=== PATIENT | male | born 1960 | race Caucasian/White ===

== ENCOUNTER 2023-12-19 07:56 | Inpatient (IN) | payer OTHER, SELFPAY ==
[2023-12-19] VITALS (22 sets, daily range): BP systolic 132–172; BP diastolic 59–83; PULSE 50–69; RESP 9–20; TEMP 35.9–36.9; O2SAT 94–100; BMI 21.4
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
[2023-12-19] MEDS: Normal Saline Flush 10 ML SYR IVP ×2 (08:15→19:41)
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
[2023-12-19] MEDS: fentaNYL 100 MCG/2 ML VIAL IVP (08:20)
[2023-12-19 08:24] LABS: Abs Immature Grans 0.06 10^3/uL (0.0-0.06); Absolute Basophil Count 0.04 10^3/uL (0.0-0.2); Absolute Eosinophil Count 0.12 10^3/uL (0.0-0.7); Absolute Monocyte Count 0.57 10^3/uL (0.1-0.8); Absolute Neutrophil Count 8.39 10^3/uL (1.2-6.7); Basophils % 0.4; Eosinophils % 1.1; HCT 38.9 % (40.0-50.0); HGB 13.9 g/dL (13.5-17.5); Immature Grans % 0.5; Lymphocytes % 17.9; MCH 34.2 pg (27.0-33.0); MCHC 35.7 % (32.0-36.0); MCV 96 fL (80-95); MPV 9.2 fL (8.0-11.0); Monocytes % 5.1; Platelet Count 196 10^3/uL (130-400); RBC 4.07 10^6/uL (4.36-5.78); RDW 11.5 % (11.8-14.1); RDW-SD 40.3 fL; WBC 11.18 10^3/uL (4.4-10.8)
[2023-12-19 08:39] LABS: ALT 32 U/L (16-63); AST 25 U/L (15-37); Albumin 4.5 g/dL (3.4-5.0); Alkaline Phosphatase 126 U/L (46-116); Anion Gap 14.2 mmol/L (3-11); BUN 9 mg/dL (7-18); Bilirubin, Total 0.6 mg/dL (0.2-1.0); CO2 24.8 mmol/L (21.0-32.0); CREATININE 0.8 mg/dL (0.70-1.30); Chloride 99 mmol/L (98-107); Estimated GFR 98.21 (mL/min/1.73m2); Glucose 139 mg/dL (74-106); Magnesium 1.9 mg/dL (1.8-2.4); Potassium 3.7 mmol/L (3.5-5.1); Sodium 138 mmol/L (136-145); Total Protein 8.2 g/dL (6.4-8.2)
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
[2023-12-19] MEDS: Lactated Ringers 1,000 ML 1000 ML IV (09:06)
[2023-12-19] MEDS: Normal Saline - Diluent 50 ML VIAL IJ (09:06)
[2023-12-19] MEDS: Omnipaque 350 MG/ML 100 ML BTL IJ (09:07)
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
--- NOTE | 2023-12-19 10:15 | DI.RAD_ITS ---
Exam(s) XR HIP RT IN OR EXAM: XR HIP RT IN OR CLINICAL HISTORY: RIGHT FEMUR FRACTURE. TECHNIQUE: 2D digital imaging was performed. COMPARISON: No exams were available for comparison FINDINGS: Fluoroscopy was provided intraoperatively during open reduction internal fixation of right upper femu r displaced comminuted fracture. See procedure report for details. Total fluoroscopy time 3 minutes 59 seconds IMPRESSION: Radiation exposure index/cumulative dose: tanya Ro= 24.661 mGy DATA REPOSITORY: RADIATION DOSE DELIVERED:
--- NOTE | 2023-12-19 10:38 | ANES.PREOP_ITS ---
General Info Date of Service Date Performed: 12/19/23 Height: 5 ft 9 in Weight: 65.771 kg Body Mass Index (BMI): 21.4 Surgical Procedure: Operation Date: 12/19/23 10:45 Proposed Procedure Side Surgeon p Hip TFNA Right Peter De Jesus MD Meds Allergies and Home Medications Allergies Allergy/AdvReac Type Severity Reaction Status Date / Time No Known Allergies Allergy Unverified 12/19/23 08:05 Home Medication Medication Instructions Recorded multivitamin (Daily Multi-Vitamin 1 tab PO DAILY 12/19/23 tablet) Current Visit Medications: Current Medications Generic Name Dose Route Start Last Admin Trade Name Freq PRN Reason Stop Dose Admin Fentanyl 100 mcg 12/19/23 08:04 12/19/23 08:20 Fentanyl 100 Mcg/2 Ml Vial IVP 100 mcg PRN PRN Administration Ringer's Solution 1,000 mls @ 80 mls/hr 12/19/23 10:01 IV INFUSION GYPSY IV Miscellaneous Supplies 1 each 12/19/23 08:15 Iv Access-Emergency Dept IV DIRECTED GYPSY Iohexol 100 ml 12/19/23 09:15 12/19/23 09:07 Omnipaque 350 Mg/Ml 100 Ml Btl IJ 01/18/24 23:59 100 ml DIRECTED GYPSY Administration Sodium Chloride 0 ml 12/19/23 08:04 Normal Saline Flush 10 Ml Syr IVP PRN PRN Sodium Chloride 0 ml 12/19/23 08:30 12/19/23 08:15 Normal Saline Flush 10 Ml Syr IVP 10 ml BID GYPSY Administration Sodium Chloride 0 ml 12/19/23 08:04 Normal Saline 10 Ml Vial IJ DIRECTED PRN Sodium Chloride 50 ml 12/19/23 09:15 12/19/23 09:06 Normal Saline - Diluent 50 Ml Vial IJ 50 ml .FOR DI USE GYPSY Administration PFSH Active Problems Active Problems: Problem Status Onset Code Femur fracture, right S72.91XA Face lacerations S01.81XA Tobacco Smoking/Tobacco Use Status: Never Alcohol Alcohol Intake: current Alcohol intake frequency: 0-2 drinks per day Alcohol type: beer Substance Use Substance use: Occasionally Substance use type: marijuana Vital Signs and Lab Results Vital Signs Most Recent Vital Signs in EMR: Most Recent Vital Signs Temp Pulse Resp BP Pulse Ox 35.9 C L 56 L 14 172/83 H 94 12/19/23 07:56 12/19/23 10:12 12/19/23 10:12 12/19/23 10:12 12/19/23 10:12 Lab Results 12/19/23 08:15 12/19/23 08:15 Blood Type / Crossmatch: 2 Patient ABO/Rh Pending 12/19/23 Antibody Screen Pending 12/19/23 Complete Blood Count: 2 White Blood Count 11.18 10^3/uL (4.4-10.8) H 12/19/23 08:15 Red Blood Count 4.07 10^6/uL (4.36-5.78) L 12/19/23 08:15 Hemoglobin 13.9 g/dL (13.5-17.5) 12/19/23 08:15 Hematocrit 38.9 % (40.0-50.0) L 12/19/23 08:15 Platelet Count 196 10^3/uL (130-400) 12/19/23 08:15 Complete Metabolic Panel: 2 Sodium 138 mmol/L (136-145) 12/19/23 08:15 Potassium 3.7 mmol/L (3.5-5.1) 12/19/23 08:15 Chloride 99 mmol/L (98-107) 12/19/23 08:15 Carbon Dioxide 24.8 mmol/L (21.0-32.0) 12/19/23 08:15 BUN 9 mg/dL (7-18) 12/19/23 08:15 Creatinine 0.8 mg/dL (0.70-1.30) 12/19/23 08:15 Est GFR (CKD-EPI 2020) 98.21 (mL/min/1.73m2) 12/19/23 08:15 Magnesium 1.9 mg/dL (1.8-2.4) 12/19/23 08:15 Calcium 10.0 mg/dL (8.5-10.1) 12/19/23 08:15 Albumin 4.5 g/dL (3.4-5.0) 12/19/23 08:15 Glucose 139 mg/dL (74-106) H 12/19/23 08:15 Liver Function Panel: 2 Alanine Aminotransferase (ALT/SGPT) 32 U/L (16-63) 02/25/24 08: 15 Aspartate Amino Transf (AST/SGOT) 25 U/L (15-37) 12/19/23 08:15 Coagulation Panel: 2 No Data to Display Cardiac Panel: 2 No Data to Display Arterial Blood Gas: 2 No Data to Display Venous Blood Gas: 2 No Data to Display Pancreas Panel: 2 No Data to Display Thyroid Panel: 2 No Data to Display Infectious Disease: 2 No Data to Display Blood Cultures: 2 No Data to Display Toxicology Panel: 2 No Data to Display Anesthesia Assessment and Plan Anesthesia History Personal History: No History of Anesthesia Complications Family History: No Family History of Anesthesia Complications Exercise Tolerance Exercise Tolerance: Metabolic Equivalents>4 Pertinent Negatives Pertinent Negatives: No Symptoms of GERD Cardiac & Pulmonary Exam Cardiac Exam: Normal S1/S2 Heart Sounds Pulmonary Exam: Clear Bilateral Breath Sounds Implantable Cardiac Device Does patient have a Pacemaker or an ICD?: Yes Device Copy Manager:: [employer] Reason for Placement:: HR control Date of Last Device Interrogation:: Blue-Tooth WiFi Airway Exam Known Difficult Airway: No Mallampati Class: 2 Mouth Opening: Normal (> 3cm) Thyromental Distance: Greater than 3 cm Facial Hair: Full Capps Neck Range of Motion: Full ROM Neck Circumference: Normal Teeth Condition: Normal Dentition ASA Classification ASA Score: ASA 2 Emergency Case?: No NPO Status NPO Status: Full Stomach Anesthesia Plan Resuscitation Status: Full Code Anesthesia Technique: General Anesthesia Airway Planned: Endotracheal Tube Monitors Used: Standard Monitors and SedLine
[2023-12-19] MEDS: Lactated Ringers 1,000 ML 80 ML IV (10:56)
[2023-12-19] MEDS: ceFAZolin 2 GM/50 ML BAG IVPB (11:20)
--- NOTE | 2023-12-19 14:09 | W.PM.OP ---
Date of service: 12/19/23 Time of Service: 11:00 Operative Note Operative Note DATE OF PROCEDURE: 12/19/23 PRE-OP DIAGNOSIS: Right Subtrochanteric Femur Fracture, Bilateral Acetabular Fractures POST-OP DIAGNOSIS: same PROCEDURE: Open Reduction and Intramedullary Fixation of Right Subtrochanteric Femur Fracture Instability testing of bilateral hips SURGEON: Peter De Jesus BALLET SOLOIST: Javon Velasquez Refer to Anesthesia Record ESTIMATED BLOOD LOSS: 250 PATHOLOGY: none sent COMPLICATIONS: None Patient was transported to: PACU Patient's condition: stable Implants: Depuy-Synthes Greater Trochanter RFN 11mm x 380mm Indications: Magdaleno who presented to the Emergency Department after a high energy fall while skiing this morning. X-rays confirmed the diagnosis of a subtrochanteric fracture of the proximal femur. I reviewed the possible treatment options and given the fracture of the femur, I recommened operative fixation. I discussed the technical details of the surgery. I reviewed the risks such as bleeding, infection, pain, stiffness, malunion, nonunion, hardware prominence, hardware faiilure, malrotation, avascular necrosis, blood clot. Despite these risks, Magdaleno agreed to proceed. Findings: There is a grossly displaced fracture about the subtrochanteric region which was challenging to reduce given the amount of flexion and interposed bone. A mini open approach was made laterally for manipulation of the bony fragments and reduction of the fracture prior to placing a recon femoral nail. Procedure Description: Christopher was taken back to the operating room. A general anesthetic was administered. The feet were wrapped with cast padding and Coban and then placed into the boot liners and then into the boots. Care was taken to protect the skin and make sure the heels were fully down and the boots were stable. The patient was then positioned onto the HANA table. Both legs were held in a neutral position. SCDs were applied. The patient was then slid down onto a perineal post. The arm of the operative side was then placed across the chest and secured. The nonoperative leg was scissored. A gentle reduction was then performed with traction and internal rotation and gentle external manipulation. However, it was quite obvious that this was unable to be reduced with closed measures. Prophylactic antibiotics in the form of Cefazolin were administered. 1g of Tranxemic Acid was given intravenously within 30 minutes of incision. The right leg was then prepped with Chloraprep and draped in a standard fashion with shower-curtain type drape with Iodine impregnated skin protection. A timeout to confirm correct identity, side and site, procedure, allergies, anesthesia, and medical concerns was performed. I utilized fluoroscopy to identify the site of the fracture on the skin and then centered an 8 cm incision overlying this with the anticipation of utilizing it for later recon screw placement. This incision was taken down through the skin and eventually the IT band. The vastus fascia was split through a already present defect from the fracture. I then had visualization of the lateral side of the femur. Manipulation of the bony fragments was performed utilizing various retractors. It was very challenging to reduce the flexion of the proximal fragment and manipulate the other 2 pieces. The medial butterfly fragment was completely unstable and had the tendency to rotate and interposed itself and in appropriate position between the proximal and distal fragments. The reduction was also challenging given that there was no side clamp to since the entire medial wall was a separate piece. Nevertheless, with downward force upon the proximal fragment and some elevation of the distal fragment I was able to manipulate the pieces into close proximity and then utilize a collinear clamp with a large disc to clamp the 2 fragments of the femur laterally along with the medial butterfly fragment. This seemed to closely reduce the fracture in both the AP and the lateral. Thus, nail placement was performed. Using fluoroscopy, the starting point was marked over the lateral hip, proximal to the tip of the greater trochanter. A 3cm incision was made through skin and the fascia of the gluteus musculature until the tip of the trochanter was palpable. The starting wire was placed onto the tip and centered in the AP plane. Using a niru, the starting guide wire was buried into the bone. A lateral x-ray confirmed appropriate position and the guidewire was advanced to the level of the lesser trochanter. With a tissue protector, the proximal femur was opened with the opening reamer. A ball-tipped guide wire was inserted into the femur and advanced to the distal extent. AP and lateral fluoroscopic images confirmed appropriate positioning in the distal femur. The length was measured as 380mm. A Synthes greater trochanter RFN [id number] nail was selected and opened on the back table. The femur was reamed sequentially from 9mm to 12.5mm. The nail was assembled to the aiming arm on the back table and confirmed to be aligned with the recon screw trocars. Using manual force the nail was advanced into the femur. A few light mallet blows advanced the nail to its appropriate position. The 2 trocars were then slid down against the lateral side of the femur and a single guidewire was placed to occupational therapy supervisor positioning proximal distal as well as on the lateral view. Manipulation of the arm was performed while maintaining reduction and 2 K wires were placed through the trocars into the femoral head through the femoral neck and a roughly center position on the lateral. These were then measured and drilled. A 105 mm screw was placed distally and a 90 mm screw was placed superiorly, both with excellent purchase and bite. AP and lateral x-rays of both the hip and the knee confirmed appropriate positioning within the femur and with good alignment of the fracture. There was some slight distraction of the fracture laterally and thus I placed a single screw distally through the dynamic hole. The c-arm was moved to the knee where perfect circles were obtained for distal screw placement. The skin and deeper tissues were incised down to the femur. The drill was taken through the femur, nail, and opposite cortex. This was measured. The screw was inserted with good purchase and bite. Lateral x-ray showed the screw was through the nail and then an AP image confirmed appopriate length. With some stabilizing pressure distally I used the targeting arm to impact the nail thus further reducing the fracture. A second screw was placed into the distal aspect the nail in the static hole using similar perfect red devil technique. Final x-rays were obtained. The wounds were thoroughly irrigated. A cocktail consisting of 123mg of Ropivacaine, 0.25mg of Epinephrine, 0.04mg of Clonidine, and 15mg of Ketorolac, diluted to 100cc was injected throughout the tissues. The deep fascia of the proximal two wounds was reapproximated with a #1 Vicryl. The deep tisses were closed with 0 and 2-0 Vicryl and the skin was closed with a running subcuticular Monocryl suture, reinforced with skin glue. Mepilex silver dressings were placed onto the wounds. The drapes were removed and his legs were brought back onto the regular portion of the table out of the boots. I then performed manipulation of each hip. Started with the left side of brought the hip into deep flexion, internal rotation and some adduction. I also applied an axial load in this position which was approximately 100 degrees of flexion, 20 degrees of internal rotation, and 10 degrees of adduction. There was no dislocation. There may been some slight slide appreciated but it was clearly not a dislocation nor true subluxation and the leg was brought back out to his regular position. This was repeated on the right side which had a very similar finding. There was no dislocation of the hip and no true subluxation appreciated. At the end of the case, all counts were correct. Magdaleno tolerated the procedure well without known complication and was taken to the PACU for recovery. Physical therapy will start post-operatively, weigh-bearing as tolerated with assistive devices. We will maintain some posterior hip precautions about both hips due to the posterior acetabular fractures. Anticoagulation will start within 12-24 hours. 3 doses of post-operative antibitiocis for prophylaxis.
--- NOTE | 2023-12-19 14:37 | W.ANESPOSTOP ---
Postoperative Evaluation Date, Time and Location Date Performed: 12/19/23 Time Performed: 14:37 Patient Location: PACU Vital Signs Most Recent Imported Vital Signs: Most Recent Vital Signs Temp Pulse Resp BP Pulse Ox 36.4 C L 63 15 142/59 H 98 12/19/23 14:30 12/19/23 14:30 12/19/23 14:30 12/19/23 14:30 12/19/23 14:30 Pain Score Most Recent Pain Score: Most Recent Pain Score Pain Level 0 12/19/23 14:30 Assessment Mental Status: Awake (Alert & Oriented to Patient Baseline) Airway and Respiratory Function: Patent airway with normal (patient baseline) respiratory exam Cardiovascular Function: Hemodynamically Stable Hydration Status: Adequately Hydrated Nausea & Vomiting: No Nausea or Vomiting Pain: Pain is tolerable per patient Peripheral Nerve Block: Patient did not receive a nerve block
[2023-12-19] MEDS: ceFAZolin 1 GM/50 ML BAG IVPB (17:31)
[2023-12-19] MEDS: Ketorolac 15 MG/ML VIAL IVP (19:41)
[2023-12-20] MEDS: ceFAZolin 1 GM/50 ML BAG IVPB ×2 (01:54→10:41)
[2023-12-20] MEDS: Ketorolac 15 MG/ML VIAL IVP ×2 (03:54→10:41)
[2023-12-20] MEDS: Normal Saline Flush 10 ML SYR IVP ×2 (03:55→07:39)
[2023-12-20 06:35] LABS: HCT 26.4 % (40.0-50.0); HGB 9.6 g/dL (13.5-17.5); MCH 35.2 pg (27.0-33.0); MCHC 36.4 % (32.0-36.0); MCV 97 fL (80-95); MPV 9.3 fL (8.0-11.0); Platelet Count 160 10^3/uL (130-400); RBC 2.73 10^6/uL (4.36-5.78); RDW 11.8 % (11.8-14.1); RDW-SD 41.2 fL; WBC 9.51 10^3/uL (4.4-10.8)
[2023-12-20 06:52] LABS: Anion Gap 7.9 mmol/L (3-11); BUN 11 mg/dL (7-18); CO2 27.1 mmol/L (21.0-32.0); CREATININE 0.8 mg/dL (0.70-1.30); Calcium 8.5 mg/dL (8.5-10.1); Chloride 104 mmol/L (98-107); Estimated GFR 98.21 (mL/min/1.73m2); Glucose 113 mg/dL (74-106); Potassium 4.2 mmol/L (3.5-5.1); Sodium 139 mmol/L (136-145)
[2023-12-20] MEDS: Enoxaparin 40 MG/0.4 ML SYR SC (07:38)
[2023-12-20] MEDS: Dexamethasone 4 MG TAB PO (07:38)
[2023-12-20 07:39] VITALS: BP 110/73; PULSE 69; RESP 18; TEMP 37; O2SAT 97
--- NOTE | 2023-12-20 08:56 | PT.INIE ---
PT Notes Visit Reasons: ROBBIN/Ski Accident Inpatient Physical Therapy Evaluation Date: 12/20/23 Referring Doctor: Dr. De Jesus PT Orders: PT CONSULT: Subtrochanteric fracture of right femur s/p IMN 12/19/23; bilat posterior wall acetabular fx Precautions: posterior hip precautions bilaterally Patient Profile/Admitting Diagnosis: Patient admitted for medical management following ski accident resulting in subtrochanteric fracture of right femur s/p IMN 12/19/23; bilat posterior wall acetabular fx. Post op day 1. Social History/Home Situation: Resides in a private home with his sister, for whom he is primary caregiver. Sister has good mobility, but requires day to day assistance due to autism. They have a ramp to enter the home. Magdaleno typically sleeps on second floor of home, but plans to stay in downstairs guest room during his recovery. 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 Active and independent at baseline. Equipment Owned/DME: Has FWW and crutches at home, although has never used either. Subjective: Magdaleno states that he is feeling well. He has moderate pain in right hip/thigh. Has declined pain meds this morning, stating he would like to see how he feels without them. Objective: General Observation: Resting in bed. No lines. Mental Status: A&Ox3. Very pleasant and cooperative. Pain: well managed ROM: Right Upper Extremity: WFL Left Upper Extremity: WFL Right Lower Extremity: Tolerates AA hip flexion to 60*. Tolerates 80* flexion in sitting. Knee flexion to 90*. Knee extension 0*. Ankle motion WFL. Left Lower Extremity: Tolerates active hip flexion to 90*. Knee motion 0-90*. Ankle motion WFL. Strength: Right Upper Extremity: Shoulder flexion 3/5 or greater. Biceps 4+/5. Triceps 4+/5. Steel Wheel Engraver is strong. Left Upper Extremity: Shoulder flexion 3/5 or greater. Biceps 4+/5. Triceps 4+/5. Steel Wheel Engraver is strong. Right Lower Extremity: Hip flexion 3-/5. Quads 3/5 or greater. Ankle DF 3/5 or greater. Left Lower Extremity: Hip flexion 3-/5. Quads 4/5. Ankle DF 3/5 or greater. Sensation: intact distally Bed Mobility/Transfers: supine-sit: independent with HOB elevated to 30* sit-stand: supervision, cues for technique initially stand-sit: supervision, cues for technique initially Gait: Ambulates 10'x1 with FWW, CGA, cues for equipment management and WBing. After brief rest, able to ambulate 25' with FWW, supervision and good technique. Does note increasing discomfort in right thigh with ambulation. Balance: Static Sitting: normal Dynamic Sitting: good Static Standing: good Dynamic Standing: fair Special Tests: Mobility Limitations Standardized Measure [facility] AM-PAC 6 clicks Basic Mobility Inpatient Short Form: Raw Score: 23 CMS Score: 11% impairment Informed Consent/Education: Patient instructed in purpose of PT consult and plan of care. Treatment: Initial Evaluation (27962) Therapeutic Activities (46489) Instructed in transfer technique, with RLE extended for pain control Instructed in posterior hip precautions. Written precautions provided on white board. Instructed in ankle pumps, glute sets and heel slides for completion independently. Assessment: Patient is a 63 year old male referred to physical therapy services with the diagnosis of traumatic subtrochanteric fracture of right femur s/p IMN 12/19/23; bilat posterior wall acetabular fx. Patient presents with clinical signs and symptoms consistent with diagnosis. He was able to demonstrate safe ambulation with AD, and is safe for return home once medically stable. He currently demonstrates the following impairment level findings: 1. decreased hip ROM 2. decreased LE strength 3. gait impairments 4. decreased activity tolerance Impairments are contributing to the following functional limitations: 1. decreased tolerance to household distance ambulation 2. unable to ambulate without assistive device Patient is assessed as Low 57092 complexity based on the following: History: as above. No significant compliating factors Examination: functional limitations as above Presentation: stable Decision Making: low Goals: Goals X1 week 1. Supine-Sit : independent 2. Sit-Supine : independent 3. Sit-Stand : independent 4. Stand-Sit : independent 5. Bed-Chair : independent with FWW 6. Chair-Bed : independent with FWW 7. Gait : independent with FWW x 50' Plan of Care/Treatment Plan: Anticipate one additional PT session prior to returning home. Will review posterior hip precautions and HEP, as well as equipment management and gait mechanics. Plan of care has been reviewed with the PROPOSAL REVIEW ANALYST providing the service under Physical Therapy direction. Initiate Physical Therapy intervention for strengthening, bed mobility, transfers, gait, stairs, balance training, use of assistive device. DISCHARGE RECOMMENDATIONS: Home with no services TREATMENT CODE/TIME: 37321, [id number]) Nery Liriano PT, DPT [facility] Please sign an return this page within 30 days if you agree with the above POC. Thank you! Physician Signature Date [facility], [facility] All Active Problems (Updated 12/19/23 @ 11:00 by Peter De Jesus MD) Closed left acetabular fracture (Acute) Closed posterior wall fracture of right acetabulum (Acute) Subtrochanteric fracture of right femur (Acute) Femur fracture, right (Acute) Face lacerations (Acute)
--- NOTE | 2023-12-20 09:17 | INITIAL_ITS ---
Date of service: 12/20/23 Time of Service: 09:17 Care Management Initial Assmt Initial Assessment REASON FOR HOSPITALIZATION:: Right femur fracture PREVIOUS FUNCTIONAL STATUS/SOCIAL/FAMILY SUPPORTS:: Jasbir lives in [place]. He works at [employer], and is independent at baseline in the community. CURRENT FUNCTIONAL STATUS:: Jasbir was sitting up in his chair when CM met with him. He was dressed and his bags were packed; he stated that he is feeling good and is ready for discharge. He was pleasant and engaged well in conversation. CM reviewed his discharge plan, as MD has ordered services for him. Jasbir stated that he has RYAN, but that this accident happened while at work, so this hospitalization will be billed to worker's compensation; he stated that he has been in contact with his employer. He also reported that he has a PCP at [facility], but he cannot recall the name of his provider. He stated that he has already received notification of a follow up appointment with Ortho. He stated that his ride is here, waiting for him to be discharged. CM will continue to follow. ADVANCE DIRECTIVES:: Not on file; CM will offer forms. Has patient been provided with info about the portal/API?: Yes Did the patient sign up for the portal?: No CODE STATUS:: Full Code INSURANCE COVERAGE / FINANCIAL ISSUES:: Worker's compensation; RYAN. CURRENT HOME/COMMUNITY SERVICES/EQUIPMENT:: None. PRIMARY CARE PHYSICIAN:: [facility] POTENTIAL DISCHARGE NEEDS:: Evaluations for further needs; follow up appointments. PATIENT/FAMILY EDUCATION NEEDS:: Review discharge instructions and limitations, discussion of self care needs including ask me three. ANTICIPATED BARRIERS TO DISCHARGE:: None identified. TRANSPORTATION:: Via private vehicle by family. PLAN:: Jasbir went to the OR yesterday, and was evaluated by PT this morning. Anticipate he will return home once medically cleared. He will be driven home via private vehicle by family, and will follow up with Ortho, his PCP, and discharge plan of care. CM will continue to follow. PFSH All Active Problems Closed left acetabular fracture (Acute) Closed posterior wall fracture of right acetabulum (Acute) Subtrochanteric fracture of right femur (Acute) Femur fracture, right (Acute) Face lacerations (Acute) Social History Smoking/Tobacco Use Status: Never Smoking risk assessment performed?: Yes Alcohol Intake: current Alcohol Intake frequency: 0-2 drinks per day Alcohol type: beer Drug use: Occasionally Substance use type: marijuana Housing: house Do you feel safe at home: Yes Do you feel safe in your relationship?: Yes SDOH(Care Management) Screening Will the Patient Participate in the Screening?: Unable to obtain
--- NOTE | 2023-12-20 12:42 | DSE_ITS ---
Date of service: 12/20/23 Time of Service: 12:20 DS: Diagnosis Discharge Diagnosis (1) Subtrochanteric fracture of right femur: Status: Acute (2) Closed posterior wall fracture of right acetabulum: Status: Acute (3) Closed left acetabular fracture: Status: Acute Discharge Plan Disposition Patient Disposition: Home W/Home Health Services Condition: Improving Discharge Details Reason For Visit: Right Sub trochanteric Femur Fracture Admit Date/Time: 12/19/23 10:01 Admit Provider: Peter De Jesus Attending Provider: Peter De Jesus Primary Care Provider: Unknown,Unknown Hospital Course Hospital Course: Magdaleno was seen in the emergency department for injury to his right femur as well as both acetabulum following a high speed ski injury. He was taken to the operating room for fixation of the right femur fracture as well as testing of both hips. He tolerated the procedure well without notable surgical or medical complications. He is admitted to the medical surgical floor following the procedure. He did well with minimal pain and was able to ambulate. He was cleared for discharge to home Home Meds and New Rx's Prescriptions: New aspirin 81 mg tablet,delayed release (DR/EC) 81 mg PO BID Qty: 60 0RF tramadol 50 mg tablet 50 mg PO Q4H PRNQty: 10 0RF acetaminophen 500 mg tablet 1,000 mg PO Q8H PRN (Reason: pain) Qty: 90 3RF ibuprofen 600 mg tablet 600 mg PO TID PRN (Reason: pain) Qty: 90 3RF Continued multivitamin [Daily Multi-Vitamin] Tablet 1 tab PO DAILY Discharge Instructions Additional Instructions: Femur/Pelvis Discharge Instructions Activity: You may ambulate as tolerated with an assistive device. He should avoid any deep flexion, past 90 degrees of the hip, and avoid crossing her legs, keeping the knees wider than hips at all times. He should avoid any heavy lifting or quick turning or twisting. - Outpatient physical therapy can be helpful to help return you to a normal gait and improve your flexibility and strength. This can start around 2 weeks. However, we will start with home health physical therapy to begin. Dressing: Keep the surgical dressing in place for at least one week. After the first week it may be removed and replace with light gauze and tape or nothing. It may get wet after 3 days but avoid soaking the dressing. If it gets wet, just lightly pat dry. It is important to always keep some gauze between skin folds, especially when you are sitting. Spend some time with the wound exposed when you are lying flat as the incision does wrinkle onto itself. Medications: - You should take Tylenol and an anti-inflammatory Ibuprofen as your primary pain control medications. - You have been prescribed a stronger pain medication Tramadol for breakthrough pain, take as needed as prescribed. - You will be taking Aspirin 81mg twice a day for DVT prevention unless instr ucted otherwise. - If you have constipation you should take Colace or Miralax (both [id number]). It takes most people 3-4 days to have a bowel movement. Follow-up: 2 weeks If you have any acute concerns or questions, please do not hesitate to contact the office at [phone]. You may contact Dr. De Jesus with any questions after hours through the hospital at [phone] or on his cell phone at [phone]. 1. Encounter Date and Reason I certify that Jasbir Sanchez was seen by Peter De Jesus MD on 12/20/23 and that I had a [id number] encounter with this patient that meets the physician face to face encounter requirements. 2. Clinical Findings Supporting Skilled Need and Homebound Status I certify that home health services are medically necessary, include either intermittent long-term and/or physical/speech therapy, and that this patient is homebound in that absences from the home require considerable and taxing effort and are infrequent or of short duration, or are attributable to the need to receive medical care. [X] (a) Attached documentation from encounter provides clinical findings supporting skilled need and homebound status (including what assistance patient requires to leave the home). The encounter with the patient was in whole, or in part, for the following medical condition, which is the primary reason for home health care: Right Sub trochanteric Femur Fracture Long Term: Physical Therapy: Magdaleno would benefit from home health physical Occupational Therapy given recent fractures. He had a high-speed subtrochanteric femur fracture on the right side status post intramedullary fixation with open reduction for which she is weightbearing as tolerated with assistive devices. He also has bilateral acetabular fractures for which she is weightbearing as tolerated with posterior precautions. Speech Therapy: Homebound: Magdaleno is homebound. He is unable leave his home unassisted given recent fractures and surgery. 3. Certification and Authentication I certify that I composed the above information based on my clinical judgement relating to this patient's medical condition and, if applicable, clinical findings communicated to me by the NPP or inpatient physician who performed the Home Health Referral. All further orders will be obtained through Dr. De Jesus. Referrals: Peter De Jesus MD [ [facility] STAFF PHYSICIAN] - Activity:: Activity as Tolerated Equipment/Supplies:: Walker Diet:: As Tolerated Discharge Orders Discharge Orders: Discharge Order (Routine); Ordered 12/20/23 Ordered By: Peter De Jesus DS: Summary Time Spent with Patient providing and/or coordinating discharge services: Greater than 30 minutes Status at Discharge Functional status at discharge: uses cane/walker Overall status at discharge: patient is progressing back to baseline Mental Status: mental status grossly normal Speech and Movement: speech and movement normal Mood: congruent mood Affect: normal affect Quality:SDOH Health Related Social Needs: No Data to Display Exam Narrative Exam Narrative: Resting comfortably in the chair. No acute distress. Alert on x 3. Laceration with some ecchymosis seen about the lateral aspect of the left orbit. Right leg is swollen but easily compressible. No ecchymosis. Dressings are clean dry and intact. Sensation intact to light touch over the femoral, sciatic nerve distributions. He has active knee extension, ankle dorsiflexion, ankle plantarflexion, great toe extension, great toe flexion. No pain with internal or external rotation or flexion of either hip except for flexion around 80 to 90 degrees. Past this point was not tested today. Psych Mental Status: mental status grossly normal Speech and Movement: speech and movement normal Mood: congruent mood Affect: normal affect DS: Data Vitals/I&O Vitals and I&O: Vital Signs Temperature 37 C 12/20/23 07:39 Temperature Source Tympanic 12/20/23 07:39 Pulse 69 02/26/24 07:39 Pulse Rhythm Regular 12/20/23 09:25 Pulse 54 L 12/19/23 10:12 Respiratory Rate 18 12/20/23 07:39 Respiratory Effort Normal 12/20/23 09:25 Respiratory Depth Normal 12/20/23 09:25 Respiratory Pattern Normal 12/20/23 09:25 Blood Pressure 110/73 12/20/23 07:39 Blood Pressure Mean 117 12/19/23 10:12 Blood Pressure Position Supine 12/19/23 07:56 Pulse Oximetry 97 12/20/23 07:39 Respiratory End-tidal CO2 36 12/19/23 14:30 Oxygen Delivery Method Room Air 12/20/23 07:39 Oxygen Flow Rate 0 12/20/23 07:39 Pain Level 2 12/20/23 10:41 Intake & Output 12/19/23 12/20/23 12/20/23 23:59 11:59 23:59 Intake Total 1060 / 1180 300 / 300 Output Total 1350 / 1350 300 / 300 Balance -290 / -170 0 / 0 Intake: IV 1060 / 1180 50 / 50 Oral 250 / 250 Output: Urine 1100 / 1100 300 / 300 Estimated Blood Loss 250 / 250 Other: Urine Color Yellow Yellow Urine Appearance Cloudy Clear Urine Odor Normal None Emesis Description None Voiding Methods Bedside Commode Toilet Data Completed and Pending Labs on day of discharge: Labs from last 24 hours 12/20/23 06:15 WBC 9.51 RBC 2.73 L Hgb 9.6 L D Hct 26.4 L MCV 97 H MCH 35.2 H MCHC 36.4 H RDW 11.8 Plt Count 160 MPV 9.3 Sodium 139 Potassium 4.2 Chloride 104 Carbon Dioxide 27.1 Anion Gap 7.9 BUN 11 Creatinine 0.8 Est GFR (CKD-EPI 2020) 98.21 Glucose 113 H Calcium 8.5 PFSH All Active Problems Closed left acetabular fracture (Acute) Closed posterior wall fracture of right acetabulum (Acute) Subtrochanteric fracture of right femur (Acute) Femur fracture, right (Acute) Face lacerations (Acute) Social History Smoking/Tobacco Use Status: Never Smoking risk assessment performed?: Yes Alcohol Intake: current Alcohol Intake frequency: 0-2 drinks per day Alcohol type: beer Drug use: Occasionally Substance use type: marijuana Housing: house Do you feel safe at home: Yes Do you feel safe in your relationship?: Yes Time Spent with Patient Time Spent with Patient: <45 minutes Time was spent: preparing to see the patient(eg.review tests), obtaining and/or reviewing separately otained hiistory, ordering medications,tests, procedures, indepentently interpreting results, counseling the patient and care coordination
--- NOTE | 2023-12-20 13:40 | PT.INTREAT ---
Date of service: 12/20/23 Time of Service: 13:40 PT Notes Visit Reasons: Right Sub trochanteric Femur Fracture Patient reviews HEP, demonstrating good understanding of all exercises. Clinician also provides a copy of posterior hip precautions, which are reviewed with patient. 6 minutes from 13:40 No charge for this treatment.
--- NOTE | 2023-12-20 18:30 | PDOC.CMDIS ---
Date of service: 12/20/23 Time of Service: 18:31 LACE Index Scoring Tool Questions: Length of Stay (in days): 1 Was the patient admitted via the E.D.?: Yes E.D. Visits: 0 Answers: Total Score: 4 Risk of Readmission: Low Risk Care Management Discharge Plan Reason for Hospitalization: Right femur fracture Discharge Plan: Jasbir returned home today with new orders for HH services through [facility]. He was driven home via private vehicle by a friend. He will follow up with his PCP, Ortho, and discharge plan of care. He is happy to be returning home. Patient/Family Education Needs: Review discharge instructions and limitations, discussion of self care needs including ask me three. Services Needed at Discharge: Home Health Care Services (HH PT, OT) SDOH Health Related Social Needs: No Data to Display
== END 2023-12-20 14:28 | disposition home health service (06) | DRG 956 ==
LOC: ER 10:34 → DSU 11:17 → MS 12-20 09:27 → DSU 12-20 09:28 → ER 12-20 09:28 → MS 12-20 09:28
PROVIDERS: Admitting Provider Student in an Organized Health Care Education/Training Program; Emergency Provider Physician Assistant; Visit Provider Student in an Organized Health Care Education/Training Program
PROC: 0QS606Z Reposition Right Upper Femur with Intramedullary Internal Fixation Device, Open Approach (ICD-10-PCS; CPT 27245; principal; 2023-12-19 10:45)
DX: S72.21XA Displaced subtrochanteric fracture of right femur, initial encounter for closed fracture (principal); S32.421A Displaced fracture of posterior wall of right acetabulum, initial encounter for closed fracture; S32.422A Displaced fracture of posterior wall of left acetabulum, initial encounter for closed fracture; S01.81XA Laceration without foreign body of other part of head, initial encounter; F12.90 Cannabis use, unspecified, uncomplicated; W17.89XA Other fall from one level to another, initial encounter; Y93.23 Activity, snow (alpine) (downhill) skiing, snowboarding, sledding, tobogganing and snow tubing; Y92.39 Other specified sports and athletic area as the place of occurrence of the external cause; Y99.0 Civilian activity done for income or pay; Z95.0 Presence of cardiac pacemaker
CPT/HCPCS: 27245; 27275; 00123; 36415; 73552; 74177; 80048; 80053; 85027; 86850; 86900; 86901; 90471; 90715; 96374; 97161; 97530; 99285; J1650; 70450; 71260; 72125; 73501; 83735; 85025; J0131; J0690; J1100; J1885; J2001; J2250; J2405; J2704; J3010; J3490; J8540

== ENCOUNTER 2024-01-03 13:22 | Outpatient (CLI) | payer OTHER, MEDICAID, SELFPAY ==
--- NOTE | 2024-01-03 10:24 | DI.RAD_ITS ---
Exam(s) XR PELVIS AP XR FEMUR RT EXAM: XR FEMUR RT and XR pelvis AP CLINICAL HISTORY: RIGHT FEMUR FX. TECHNIQUE: 2D digital imaging was performed of the right pelvis and femur. Five images were obtaine d. AP and lateral views were obtained. COMPARISON: XA XR HIP RT IN OR from 12/19/2023 CR,XR XR FEMUR RT from 12/19/2023 FINDINGS: BONES: There is again seen an intramedullary cuhla transfixing a comminuted proximal femoral fracture. There is a new medially displaced 7 cm bony fragment. No new fractures identified. No bony destruc tive lesion is seen. Visualized portion of knee and hip joints are unremarkable. SOFT TISSUE: Normal. IMPRESSION: 1. Internal fixation of the proximal right femoral fracture. 2. New medially displaced 7 cm osseous fragment. DATA REPOSITORY: RADIATION DOSE DELIVERED:
--- NOTE | 2024-01-03 10:33 | DI.RAD_ITS ---
Exam(s) XR PELVIS AP XR FEMUR RT EXAM: XR FEMUR RT and XR pelvis AP CLINICAL HISTORY: RIGHT FEMUR FX. TECHNIQUE: 2D digital imaging was performed of the right pelvis and femur. Five images were obtaine d. AP and lateral views were obtained. COMPARISON: XA XR HIP RT IN OR from 12/19/2023 CR,XR XR FEMUR RT from 12/19/2023 FINDINGS: BONES: There is again seen an intramedullary chula transfixing a comminuted proximal femoral fracture. There is a new medially displaced 7 cm bony fragment. No new fractures identified. No bony destruc tive lesion is seen. Visualized portion of knee and hip joints are unremarkable. SOFT TISSUE: Normal. IMPRESSION: 1. Internal fixation of the proximal right femoral fracture. 2. New medially displaced 7 cm osseous fragment. DATA REPOSITORY: RADIATION DOSE DELIVERED:
== END 2024-01-03 13:23 | disposition home or self-care (01) ==
LOC: DIORS 13:23
PROVIDERS: Visit Provider Student in an Organized Health Care Education/Training Program
DX: S72.21XA Displaced subtrochanteric fracture of right femur, initial encounter for closed fracture (principal); S32.421A Displaced fracture of posterior wall of right acetabulum, initial encounter for closed fracture; X58.XXXA Exposure to other specified factors, initial encounter
CPT/HCPCS: 73552; 72170

== ENCOUNTER 2024-01-31 13:09 | Outpatient (CLI) | payer OTHER, MEDICAID, SELFPAY ==
--- NOTE | 2024-01-31 11:00 | DI.RAD_ITS ---
Exam(s) XR HIP RT AP LAT ONLY EXAM: XR HIP RT AP LAT ONLY CLINICAL HISTORY: R hip fx. TECHNIQUE: 2D digital imaging was performed. Two views COMPARISON: XA XR HIP RT IN OR from 12/19/2023 CR,XR XR FEMUR RT from 12/19/2023 CR XR PELVIS AP from 01/03/2024 CR XR FEMUR RT from 01/03/2024 FINDINGS: There has been no change in the intramedullary chula and screws. No change in fracture alignment. IMPRESSION: No acute abnormality. DATA REPOSITORY: RADIATION DOSE DELIVERED:
== END 2024-01-31 13:10 | disposition home or self-care (01) ==
LOC: DIORS 13:10
PROVIDERS: Visit Provider Physician Assistant
DX: S72.21XD Displaced subtrochanteric fracture of right femur, subsequent encounter for closed fracture with routine healing (principal); S32.421D Displaced fracture of posterior wall of right acetabulum, subsequent encounter for fracture with routine healing; X58.XXXD Exposure to other specified factors, subsequent encounter
CPT/HCPCS: 73502

== ENCOUNTER 2024-03-13 14:48 | Outpatient (CLI) | payer OTHER, SELFPAY ==
--- NOTE | 2024-03-13 10:45 | DI.RAD_ITS ---
Exam(s) XR HIP RT AP LAT ONLY EXAM: XR HIP RT AP LAT ONLY INDICATION: S/P IM NAIL. COMPARISON: CR XR HIP RT AP LAT ONLY from 01/31/2024 TECHNIQUE: 2D digital imaging was performed. Two views. FINDINGS: There is has been no change in fracture or hardware alignment. There has been some increased healing at the proximal femoral fracture site DATA REPOSITORY: RADIATION DOSE DELIVERED:
== END 2024-03-13 14:49 | disposition home or self-care (01) ==
LOC: DIORS 14:49
PROVIDERS: Visit Provider Student in an Organized Health Care Education/Training Program
DX: S72.21XD Displaced subtrochanteric fracture of right femur, subsequent encounter for closed fracture with routine healing (principal); X58.XXXD Exposure to other specified factors, subsequent encounter
CPT/HCPCS: 73502

== ENCOUNTER 2024-04-24 10:56 | Outpatient (CLI) | payer OTHER, SELFPAY ==
--- NOTE | 2024-04-24 10:45 | DI.RAD_ITS ---
Exam(s) XR FEMUR RT EXAM: XR FEMUR RT CLINICAL HISTORY: F/U R FEMUR FX. TECHNIQUE: 2D digital imaging was performed. Four images were obtained. AP and lateral views were o btained. COMPARISON: CR XR FEMUR RT from 01/03/2024 CR XR HIP RT AP LAT ONLY from 03/13/2024 FINDINGS: BONES: There are stable post operative changes present. There is intramedullary chula and screws trans fixing the fracture of the proximal right femur. No change in alignment of the fracture components i s seen. No new fracture or dislocation. JOINTS: The joint spaces are well maintained. SOFT TISSUE: Normal. IMPRESSION: Stable postoperative changes. DATA REPOSITORY: RADIATION DOSE DELIVERED:
== END 2024-04-24 10:57 | disposition home or self-care (01) ==
LOC: DIORS 10:57
PROVIDERS: PCP Family Medicine; Referring Provider Family Medicine; Visit Provider Student in an Organized Health Care Education/Training Program
DX: S72.21XA Displaced subtrochanteric fracture of right femur, initial encounter for closed fracture (principal)
CPT/HCPCS: 73552

== ENCOUNTER 2024-05-29 15:17 | Outpatient (CLI) | payer OTHER, SELFPAY ==
--- NOTE | 2024-05-29 15:21 | DI.RAD_ITS ---
Exam(s) XR FEMUR RT EXAM: XR FEMUR RT CLINICAL HISTORY: R FEMUR FX. TECHNIQUE: 2D digital imaging was performed. AP and lateral views. COMPARISON: CR XR HIP RT AP LAT ONLY from 03/13/2024 CR XR FEMUR RT from 04/24/2024 FINDINGS: BONES: Intramedullary chula and compression screws in place. No change in alignment of the proximal fe moral fracture. Continued healing. No acute fracture is present. No bony destructive lesion is seen . JOINTS: Visualized portion of knee and hip joints are unremarkable. SOFT TISSUE: Normal. IMPRESSION: Stable fracture and hardware alignment. DATA REPOSITORY: RADIATION DOSE DELIVERED:
== END 2024-05-29 15:18 | disposition home or self-care (01) ==
LOC: DIORS 15:17
PROVIDERS: PCP Family Medicine; Visit Provider Student in an Organized Health Care Education/Training Program
DX: S72.21XA Displaced subtrochanteric fracture of right femur, initial encounter for closed fracture (principal)
CPT/HCPCS: 73552

== ENCOUNTER 2024-06-29 15:52 | Outpatient (CLI) | payer OTHER, SELFPAY ==
--- NOTE | 2024-06-29 14:37 | DI.RAD_ITS ---
Exam(s) XR FEMUR RT EXAM: XR FEMUR RT CLINICAL HISTORY: S/P FIXATION R FEMUR FX. TECHNIQUE: 2D digital imaging was performed. COMPARISON: CR XR HIP RT AP LAT ONLY from 03/13/2024 CR XR FEMUR RT from 05/29/2024 FINDINGS: Two views-AP and lateral Again noted is a long intramedullary chula in the femur across the comminuted subtrochanteric fracture site. On the frontal view the fracture line appears slightly wider than previous. On the lateral view it a ppears unchanged. The large independent medial fragment appears unchanged. The 2 parallel fixation screws in the femoral head-neck appear unchanged. The distal aspect of the intramedullary chula in the distal femur with 2 screws at this level appear st able. IMPRESSION: As above. Slight widening of the fracture line evident on the frontal view, possibly significant. DATA REPOSITORY: RADIATION DOSE DELIVERED:
== END 2024-06-29 15:53 | disposition home or self-care (01) ==
LOC: DIORS 15:53
PROVIDERS: PCP Family Medicine; Visit Provider Student in an Organized Health Care Education/Training Program
DX: S72.21XD Displaced subtrochanteric fracture of right femur, subsequent encounter for closed fracture with routine healing (principal); X58.XXXD Exposure to other specified factors, subsequent encounter
CPT/HCPCS: 73552

== ENCOUNTER 2024-08-10 14:55 | Outpatient (CLI) | payer OTHER, SELFPAY ==
[2024-08-10 16:22] LABS: ALT 22 U/L (16-63); AST 18 U/L (15-37); Albumin 4.5 g/dL (3.4-5.0); Alkaline Phosphatase 163 U/L (46-116); Anion Gap 9.5 mmol/L (3-11); BUN 9 mg/dL (7-18); Bilirubin, Total 0.71 mg/dL (0.2-1.0); CO2 32.5 mmol/L (21.0-32.0); CREATININE 0.7 mg/dL (0.70-1.30); Calcium 10.2 mg/dL (8.5-10.1); Chloride 104 mmol/L (98-107); Estimated GFR 102.25 (mL/min/1.73m2); Glucose 82 mg/dL (74-106); Potassium 3.7 mmol/L (3.5-5.1); Sodium 146 mmol/L (136-145); Total Protein 8.4 g/dL (6.4-8.2); Vitamin B12 380 pg/mL (193-986)
[2024-08-10 16:50] LABS: PHOSPHORUS 3.2 mg/dL (2.6-4.7)
== END 2024-08-10 14:56 | disposition home or self-care (01) ==
LOC: LBO 14:57
PROVIDERS: PCP Family Medicine; Visit Provider Student in an Organized Health Care Education/Training Program
DX: S72.91XK Unspecified fracture of right femur, subsequent encounter for closed fracture with nonunion (principal)
CPT/HCPCS: 36415; 80053; 82306; 82607; 84100

== ENCOUNTER 2024-08-10 15:40 | Outpatient (CLI) | payer OTHER, SELFPAY ==
--- NOTE | 2024-08-10 14:15 | DI.RAD_ITS ---
Exam(s) XR FEMUR RT EXAM: XR FEMUR RT CLINICAL HISTORY: eval R femur frx. TECHNIQUE: 2D digital imaging was performed. COMPARISON: No exams were available for comparison FINDINGS: 3 views Again noted is a long intramedullary chula in the femur across the subtrochanteric fracture site. Hard fernandez appears stable with no fracture or loosening of the hardware. The fracture lines in the subtrochanteric region are still visible and appear unchanged from images o f 06/29/2024. No evidence of osteomyelitis. IMPRESSION: No significant radiographic change compared to images of 06/29/2024. DATA REPOSITORY: RADIATION DOSE DELIVERED:
== END 2024-08-10 15:41 | disposition home or self-care (01) ==
LOC: DIORS 15:41
PROVIDERS: PCP Family Medicine; Visit Provider Student in an Organized Health Care Education/Training Program
DX: S72.21XD Displaced subtrochanteric fracture of right femur, subsequent encounter for closed fracture with routine healing (principal); X58.XXXD Exposure to other specified factors, subsequent encounter
CPT/HCPCS: 73552